=== PATIENT | male | born 1990 | race Hispanic/Latino ===

== ENCOUNTER 2018-10-22 13:43 | Emergency (ER) | payer SELFPAY ==
[2018-10-22] MEDS ORDERED: DEXAMETHASONE SOD PHOSPHATE 10MG/ML 1ML VIAL ONE (14:10)
[2018-10-22] MEDS ORDERED: DiphenhydrAMINE HCL 50 MG/ML VIAL ONE (14:11)
[2018-10-22] MEDS ORDERED: SODIUM CHLORIDE 0.9% 1000ML 1,000 ML IV ONE (14:11)
[2018-10-22] MEDS ORDERED: FAMOTIDINE/PF 20 MG/2 ML VIAL IV ONE (14:11)
== END 2018-10-22 15:22 | disposition home or self-care (01) ==
LOC: EDH 13:43
DX: L50.0 Allergic urticaria (principal); Z88.6 Allergy status to analgesic agent; Z91.013 Allergy to seafood
CPT/HCPCS: 96374; 96375; 99283; J1100; J1200; J3490; J7030